=== PATIENT | female | born 1975 | race Hispanic/Latino ===

== ENCOUNTER → 2024-10-04 | Outpatient (CLI) | payer BC ==
[~2024-10-04] MED LIST: GADOTERATE MEGLUMINE 10 MMOL/20 ML VIAL IV ONE
--- NOTE | 2024-10-04 16:25 | HMCIMG ---
MR PITUITARY WWO (BRAIN WWO) HISTORY: Benign neoplasm of pituitary gland COMPARISON: None TECHNIQUE: MRI of the brain was performed utilizing multiple pulse sequences in axial, coronal and sagittal planes. Patient was given 15 cc of Clariscan through intravenous route. High-resolution images of the pituitary gland were obtained. FINDINGS: The ventricles and extraventricular CSF spaces are nondilated for patient's age. There is no midline shift, mass effect or herniation. No subacute hemorrhage is seen. No MR evidence of acute infarct is seen in the diffusion weighted images. Cerebellar tonsils are in normal position. There is right sphenoid sinus disease with mucoperiosteal thickening. Enhancing focus is seen in the pituitary gland measuring 5 mm x 8 mm suspicious for pituitary microadenoma. IMPRESSION: 1. No MR evidence of acute infarct is seen in the diffusion weighted images. Enhancing focus is seen in the pituitary gland measuring 5 mm x 8 mm suspicious for pituitary microadenoma.
== END | disposition home or self-care (01) ==
LOC: RAH 10:55
PROVIDERS: ATTEND Internal Medicine
DX: D35.2 Benign neoplasm of pituitary gland (principal); J34.89 Other specified disorders of nose and nasal sinuses
CPT/HCPCS: 70553; A9575

== ENCOUNTER → 2024-10-08 | Outpatient (CLI) | payer SELFPAY ==
--- NOTE | 2024-10-08 09:32 | HMCIMG ---
Right breast diagnostic mammogram and ultrasound. HISTORY: ABCESS OF THE BREAST & NIPPLE COMPARISON: Screening mammogram 01/16/2024. TECHNIQUE: Right breast digital diagnostic mammogram was performed. Right breast ultrasound images also were obtained. FINDINGS: Parenchymal density: The breasts are heterogeneously dense, which may obscure small masses. There is some increased soft tissue density in the immediate subareolar region on the right. There is no discrete focal mass. There are no pathologic appearing calcifications. Remainder of the right breast appears unremarkable. Right breast ultrasound shows indurated parenchyma in the area in question consistent with edema. There is some fluid interspersed between soft tissue planes. There is no evidence of a discrete focal drainable abscess at this time. IMPRESSION: 1. Findings consistent with marked inflammation and edema, there is some fluid interspersed between soft tissue planes in the area in question but no discrete focal drainable abscess at this time. The patient was entered into a reminder system with a target due date for their next mammogram. BI-RADS CATEGORY 2: BENIGN FINDINGS Recommend monthly self breast exam as well as annual clinical examination. A negative x-ray should not delay biopsy if a dominant or clinically suspicious mass is present, since 8-10% of cancers are not identified by mammography. Dense breasts particularly, may obscure an underlying neoplasm. Some of these may be detected clinically and therefore, clinical examination is an essential part of breast evaluation.
== END | disposition home or self-care (01) ==
LOC: RAH 08:01
PROVIDERS: ATTEND Nurse Practitioner Family
DX: R92.333 Mammographic heterogeneous density, bilateral breasts (principal); N61.1 Abscess of the breast and nipple
CPT/HCPCS: 76641; 77065